=== PATIENT | female | born 1935 | race Caucasian/White ===

== ENCOUNTER 2019-07-20 11:42 | Inpatient (IN) | payer OTHER ==
[~2019-07-20] VITALS: Ht 167.6 cm; Wt 68.9 kg
[~2019-07-20 11:42] MED LIST: ACETAMINOOPHEN-1 TAB PO; ACID CONTROL20 MG PO; CEFADROXIL500 MG PO; CITALOPRAM HBR20 MG PO; DICLOFENAC SODI50 MG PO; LEVOTHROID75 MCG; RESTORIL30 M1 PO; SIMVASTATIN20 MG PO; VASOTEC5 MG PO; XARELTO10 MG PO
[2019-07-20] MEDS ORDERED: ASPIR 8181 MG (11:51)
[2019-07-20] MEDS ORDERED: LIPITOR20 MG (11:52)
[2019-07-21] MEDS ORDERED: ACETAMINOPHEN-1 EAC2 PO (08:15)
[2019-07-24] MEDS ORDERED: PERCOCET 5-3251 EACH PO (10:42)
[2019-07-24] MEDS ORDERED: ELIQUIS2.5 MG PO (10:42)
== END 2019-07-24 15:46 | DRG 481 ==
LOC: ER 11:42 → SURH 14:54 → SEC-K 14:54 → O/R 16:12 → SURH 19:10
PROVIDERS: ADMIT Orthopaedic Surgery
PROC: B020ZZZ Computerized Tomography (CT Scan) of Brain (ICD-10-PCS; 2019-07-20)
PROC: 0QS706Z Reposition Left Upper Femur with Intramedullary Internal Fixation Device, Open Approach (ICD-10-PCS; principal; 2019-07-20 15:30)
PROC: 30233N1 Transfusion of Nonautologous Red Blood Cells into Peripheral Vein, Percutaneous Approach (ICD-10-PCS; 2019-07-21)
DX: S72.142A Displaced intertrochanteric fracture of left femur, initial encounter for closed fracture (principal); M80.00XA Age-related osteoporosis with current pathological fracture, unspecified site, initial encounter for fracture; D62 Acute posthemorrhagic anemia; R42 Dizziness and giddiness; W18.09XA Striking against other object with subsequent fall, initial encounter; Y93.89 Activity, other specified; Y92.89 Other specified places as the place of occurrence of the external cause; Y99.8 Other external cause status